=== PATIENT | female | born 1985 | race Caucasian/White ===

== ENCOUNTER → 2020-08-04 12:57 | Outpatient (CLI) | payer MEDICARE, SELFPAY ==
[2020-08-04 15:04] LABS: Vitamin B12 326 pg/mL (211-911)
[2020-08-04 15:45] LABS: Ferritin 4 ng/mL (8-252)
== END ==
DX: D64.89 Other specified anemias (principal); K21.9 Gastro-esophageal reflux disease without esophagitis; R73.9 Hyperglycemia, unspecified; E78.1 Pure hyperglyceridemia; I95.1 Orthostatic hypotension; A08.11 Acute gastroenteropathy due to Norwalk agent
CPT/HCPCS: 36415; 82607; 82728; 82746